=== PATIENT | male | born 1980 | race Caucasian/White ===

== ENCOUNTER → 2022-02-08 13:18 | Outpatient (BNVA) | payer OTHER, BC, SELFPAY | PROVIDERS: Visit Provider Nurse Practitioner Family | DX: M79.641 Pain in right hand (principal) | CPT/HCPCS: 73130 ==

== ENCOUNTER 2024-06-02 10:11 | Emergency (ER) | payer SELFPAY ==
[2024-06-02 10:13] VITALS: BMI 28.5
--- NOTE | 2024-06-02 10:21 | ED_ITS ---
HPI - Skin/Abscess/Foreign Bdy General: Chief complaint: Skin/Abscess/Foreign Body Stated complaint: spider bite Time Seen by Provider: 06/02/24 10:11 Source: patient Mode of arrival: ambulatory Limitations: no limitations History of Present Illness: 44-year-old male who is here from [facility] e states he has an abscess to his right side of his chest along with his right hip. He has had abscesses in the past he states had to have incised and drained. Denies any fever denies any drainage has some slight pain. Associated symptoms: Deny chills, fever(s), nausea or vomiting Related Data Home Medications Medication Instructions Recorded Confirmed acetaminophen 300 mg-codeine 30 mg 1 tab PO DAILY 02/08/22 02/08/22 tablet Previous Rx's Medication Instructions Recorded doxycycline hyclate 100 mg capsule 100 mg PO BID 10 days #20 caps 02/08/22 meloxicam 15 mg tablet 15 mg PO DAILY #30 tabs 02/08/22 sulfamethoxazole 800 1 tab PO BID 10 days #20 tabs 06/02/24 mg-trimethoprim 160 mg tablet (Bactrim DS) Allergies Allergy/AdvReac Type Severity Reaction Status Date / Time No Known Allergies Allergy Unverified 02/08/22 13:16 Review of Systems Const: Denies: fever(s), chills, body aches or change in appetite ENMT: Denies: throat pain or dental pain Card: Denies: chest pain Resp: Denies: dyspnea GI: Denies: abdominal pain, nausea, vomiting or diarrhea Musc: Denies: neck pain or back pain Skin/Breast: Reports: erythema; Denies: rash PFSH ED PFSH: Social History Smoking and tobacco/nicotine status: current every day tobacco/nicotine user Physical Exam Const: COMMON NORMALS: patient oriented x3 and healthy appearing HENMT: COMMON NORMALS: normocephalic and atraumatic HEAD & SCALP: normocephalic and atraumatic Eye: COMMON NORMALS: conjunctivae normal CONJUNCTIVA: Yes conjunctivae normal Neck/C-Spine: COMMON NORMALS: full ROM and supple Chest: OTHER: Abscess noted to right chest wall Resp: COMMON NORMALS: normal respiratory effort Cardio: COMMON NORMALS: regular rate and regular rhythm RATE: regular rate RHYTHM: regular rhythm Extremity: COMMON NORMALS: normal to inspection and full ROM Neuro: COMMON NORMALS: patient oriented x3, moves all extremities and no focal motor deficits Psych: COMMON NORMALS: mental status grossly normal, Normal thought process present and cooperative THOUGHT PROCESS: Normal thought process present Skin: COMMON NORMALS: no wounds Procedures Abscess I/D Site: chest Side (if applicable): right Local Anesthetic: lidocaine 1% Amount of anesthesia used (mL): 8 Technique: incised with #11 blade Irrigation: No Packing used?: none Course Vital Signs: Vital signs: Vital Signs Temperature 97.7 F 06/02/24 10:22 Pulse Rate 81 06/02/24 10:22 Respiratory Rate 14 06/02/24 10:22 Blood Pressure 129/82 06/02/24 10:22 Pulse Oximetry 98 06/02/24 10:22 Oxygen Delivery Me thod Room Air 06/02/24 10:22 MDM - Skin/Abscess/Foreign Bdy Medicial Decision Making Patient presents with abscess right chest that was incised and drained we will place him on Bactrim he has no signs of being sepsis he is stable for discharge back to [facility] will prescribe Bactrim. Medical Records I reviewed the patient's medical records. No radiology studies performed this visit Discharge Plan Discharge Patient Disposition: Home Clinical Impression: Abscess Condition: Stable Prescriptions: New Bactrim DS 800-160 mg tablet 1 tab PO BID 10 Days Qty: 20 0RF No Action acetaminophen-codeine 300-30 mg tablet 1 tab PO DAILY doxycycline hyclate 100 mg capsule 100 mg PO BID 10 Days Qty: 20 0RF meloxicam 15 mg tablet 15 mg PO DAILY Qty: 30 0RF Discharge Orders: Discharge ED (Routine); Ordered 06/02/24 Ordered By: Facundo Forrester Discharge Diet: Advance as tolerated Discharge Activity: Resume usual activity Patient Instructions: Abscess (ED) Coding Level of Care Code ED Employee Relations Consultant for Avril Umana
[2024-06-02 10:22] VITALS: BP 129/82; PULSE 81; RESP 14; TEMP 36.5; O2SAT 98
[2024-06-02] MEDS: sulfamethoxazole-trimeth DS 160-800 mg Tablet 1 TAB PO (11:00)
[2024-06-02] MEDS: HYDROcodone-acetaminophen 5-325 mg Tablet 1 TAB PO (11:00)
[2024-06-02] MEDS: lidocaine 1% INJ 20 mL SUBCUT (11:00)
[2024-06-02 11:12] VITALS: BP 146/102; PULSE 87; O2SAT 98
== END 2024-06-02 11:15 | disposition home or self-care (01) ==
PROVIDERS: Emergency Provider Emergency Medicine
DX: L02.213 Cutaneous abscess of chest wall (principal); Z72.0 Tobacco use
CPT/HCPCS: 10060; 99283